=== PATIENT | male | born 1965 | race Caucasian/White ===

== ENCOUNTER 2021-11-01 00:57 | Day surgery (SDC) | payer OTHER, SELFPAY ==
[2021-09-19 13:31] VITALS: BMI 33.5
--- NOTE | 2021-10-13 14:05 | PC.NURSE ---
pt denies changes in medications or medical hx since last PAT call. Pt denies questions. Verified new date and time of procedure.
--- NOTE | 2021-10-31 16:03 | PM.HPGS ---
History of Present Illness History of Present Illness Consent: Risks, benefits, and alternatives have been discussed and questions answered. Patient agrees to proceed with procedure. Chief complaint: neoplasm screening Narrative: Roverto Hunt is a 56 year old male for for colon cancer screening. He has a history of polyps. Review of Systems Review of Systems: All systems reviewed & are unremarkable except as noted in HPI and below PMFSH Past Medical History Medical History HTN (hypertension) Hyperlipidemia Obesity Social History Social History Smoking status: Never smoker Alcohol intake: current Drinks per week: 42 Alcohol use details: MIXED DRINKS Substance use: never Substance use type: does not use Living arrangements: with family Spiritual care concerns: No Meds Home Medications and Allergies Home Medications Medication Instructions Recorded Confirmed Type atorvastatin 10 mg tablet 10 mg PO DAILY 09/19/21 11/01/21 History budesonide-formoterol HFA 160 2 puff inhalation BID 09/19/21 11/01/21 History mcg-4.5 mcg/actuation aerosol inhaler (Symbicort) hydrochlorothiazide 12.5 mg capsule 12.5 mg PO DAILY 09/19/21 11/01/21 History lisinopril 10 mg tablet 10 mg PO DAILY 09/19/21 11/01/21 History Allergies Allergy/AdvReac Type Severity Reaction Status Date / Time No Known Allergies Allergy Verified 11/01/21 07:54 Exam Resp: Auscultation: clear to auscultation bilaterally Cardio: Rate: regular rate Rhythm: regular rhythm GI: GI Palp: Yes Soft to palpation and No Tenderness to palpation present (GI) Assessment and Plan Assessment and plan (1) Colon cancer screening: Code(s): Z12.11 - Encounter for screening for malignant neoplasm of colon Status: Acute Assessment and Plan: Colonoscopy with possible biopsy or polypectomy or cautery or injection of substances.
[2021-11-01 07:56] VITALS: BP 143/101; PULSE 103; RESP 17; TEMP 36.3; O2SAT 100; BMI 33.0
[2021-11-01] MEDS: LACTATED RINGERS 1,000 ML 150 ML IV CONT (08:04)
--- NOTE | 2021-11-01 08:20 | WPDANESEPPF ---
Anes - Initial Pre Proc Eval Procedure: Operation Date: 11/01/21 09:15 Proposed Procedures p Screening Colonoscopy - Jesus Erazo MD Date/Time: 11/01/21 08:20 Surgeon: Jesus Erazo MD Pre Op Diagnosis: neoplasm screening Patient Data Age: 56 Gender: M Height: 1.73 m Weight: 98.7 kg Last Vital Signs Temp 36.3 C L 11/01/21 07:56 Pulse 103 H 11/01/21 07:56 Resp 17 11/01/21 07:56 BP 143/101 H 11/01/21 07:56 Pulse Ox 100 11/01/21 07:56 O2 Del Method Room Air 11/01/21 07:56 Allergies Allergy/AdvReac Type Severity Reaction Status Date / Time No Known Allergies Allergy Verified 11/01/21 07:54 Home Medications Medication Instructions Recorded Confirmed Type atorvastatin 10 mg tablet 10 mg PO DAILY 09/19/21 11/01/21 History budesonide-formoterol HFA 160 2 puff inhalation BID 09/19/21 11/01/21 History mcg-4.5 mcg/actuation aerosol inhaler (Symbicort) hydrochlorothiazide 12.5 mg capsule 12.5 mg PO DAILY 09/19/21 11/01/21 History lisinopril 10 mg tablet 10 mg PO DAILY 09/19/21 11/01/21 History Patient hx anesthesia problems: none Family hx anesthesia problems: none Results Review: All pre-operative results and documents have been reviewed as part of the pre-operative evaluation. [facility] Past Medical History Medical History (Updated 11/01/21 @ 08:21 by Bereket Farley MD) HTN (hypertension) Hyperlipidemia Obesity Social History Social History Smoking status: Never smoker Alcohol intake: current Drinks per week: 42 Alcohol use details: MIXED DRINKS Substance use: never Substance use type: does not use Living arrangements: with family Spiritual care concerns: No Anes - Eval Final PreProcedure Day of Procedure 11/01/21 08:20 Patient weight: obese Heart: regular rate and rhythm Lungs: clear to auscultation and normal air movement Airway: Mallampati scale class II Neurological: alert and oriented Last oral intake: >/= 8 hours ASA classification: III Emergent: no Anesthetic plan: proceed Anesthesia type and monitoring: general GIVS Results Review: All pre-operative results and documents have been reviewed as part of the pre-operative evaluation. Informed Consent: The patient's anesthetic plan and its attendant risks and benefits were discussed with the patient/family/POA. Questions were solicited and answers provided to the satisfaction of the patient/family/POA.
[2021-11-01 09:26] VITALS: BP 117/76; PULSE 96; RESP 22; O2SAT 97
[2021-11-01 09:36] VITALS: BP 122/83; PULSE 87; RESP 15; O2SAT 98
[2021-11-01 09:46] VITALS: BP 122/87; PULSE 78; RESP 17; O2SAT 100
== END 2021-11-01 09:56 | disposition home or self-care (01) ==
PROVIDERS: PCP Nurse Practitioner Family; Visit Provider Internal Medicine Gastroenterology
PROC: 0DJD8ZZ Inspection of Lower Intestinal Tract, Via Natural or Artificial Opening Endoscopic (ICD-10-PCS; CPT 45378; principal; 2021-11-01 09:15)
DX: Z12.11 Encounter for screening for malignant neoplasm of colon (principal); K57.30 Diverticulosis of large intestine without perforation or abscess without bleeding; D12.4 Benign neoplasm of descending colon; K64.8 Other hemorrhoids; I10 Essential (primary) hypertension; E78.5 Hyperlipidemia, unspecified; Z79.51 Long term (current) use of inhaled steroids; E66.9 Obesity, unspecified; Z68.33 Body mass index [BMI] 33.0-33.9, adult
CPT/HCPCS: 45385; 88305; J2704; J7120